=== PATIENT | female | born 1995 | race Caucasian/White ===

== ENCOUNTER → 2017-06-04 | Outpatient (CLI) | payer OTHER | LOC: M.RAD 10:10 | DX: M54.6 Pain in thoracic spine (principal); R51 Headache; M54.5 Low back pain; M54.2 Cervicalgia; M54.9 Dorsalgia, unspecified ==

== ENCOUNTER 2020-07-16 12:17 | Emergency (ER) | payer OTHER ==
[~2020-07-16] VITALS: Ht 170.2 cm; Wt 90.7 kg
[2020-07-16] MEDS ORDERED: DEPO-PROVE150 MG/11 IM (12:46)
[2020-07-16 13:00] LABS: HEMATOCRIT 44.8 % (37.0-47.0); HEMOGLOBIN 14.7 gm/dL (12.0-15.0); MCH 27.6 pg (26.0-34.0); MCHC 32.7 g/dL (28.0-37.0); MCV 84.3 fL (80.0-100.0); MPV 9.1 fl. (7.2-11.1); NUCLEATED RBCS 0 /100WBC; PLATELET COUNT* 233 thou/uL (150-400); RBC 5.31 mil/uL (4.20-5.00); RDW-CV 14.1 % (10.5-14.5); WBC 15.9 thou/uL (4.0-11.0)
[2020-07-16 13:10] LABS: CALCIUM 9.5 mg/dL (8.5-10.1); CREATININE 0.9 mg/dL (0.6-1.3)
[2020-07-16 13:15] LABS: ALBUMIN 4.5 g/dL (3.4-5.0); TOTAL BILIRUBIN 0.8 mg/dL (<0.1-1.0); TOTAL PROTEIN 8.1 g/dL (6.4-8.2)
[2020-07-16 13:35] LABS: ABSOLUTE EOSINOPHILS 0.5 thou/uL (0.0-0.7); ABSOLUTE MONOCYTES 0.2 thou/uL (0.0-1.2); ABSOLUTE NEUTROPHILS 14.3 thou/uL (1.6-8.1); PLATELET ESTIMATE ADEQUATE
[2020-07-16 13:43] LABS: URINE BILIRUBIN NEGATIVE (Negative); URINE BLOOD NEGATIVE (Negative); URINE CLARITY CLEAR; URINE COLOR YELLOW; URINE GLUCOSE-RANDOM NEGATIVE (Negative); URINE KETONES NEGATIVE (Negative); URINE LEUKOCYTES-REFLEX NEGATIVE (Negative); URINE NITRITE-REFLEX NEGATIVE (Negative); URINE PROTEIN NEGATIVE (Negative); URINE UROBILINOGEN 0.2 E.U./dl (0.2-1.0)
[2020-07-16] MEDS ORDERED: IBUPROFEN 800800 M1 PO (15:36)
[2020-07-16] MEDS ORDERED: AUGMENTIN 875-1 EACH PO (15:36)
[2020-07-16] MEDS ORDERED: ZOFRAN ODT4 MG PO (15:36)
[2020-07-16] MEDS ORDERED: NORCO5 PO (15:36)
[2020-07-16 15:49] VITALS: BP 101/60
== END 2020-07-16 15:50 | disposition home or self-care (01) ==
LOC: M.ERS 12:17
PROVIDERS: Nurse Practitioner Family
DX: K52.9 Noninfective gastroenteritis and colitis, unspecified (principal); Z20.822 Contact with and (suspected) exposure to COVID-19; Z88.5 Allergy status to narcotic agent; Z90.49 Acquired absence of other specified parts of digestive tract

== ENCOUNTER 2021-02-06 11:55 | Emergency (ER) | payer OTHER ==
[~2021-02-06] VITALS: Ht 170.2 cm; Wt 89.8 kg
[~2021-02-06 11:55] MED LIST: AUGMENTIN 875-1 EACH PO; DEPO-PROVE150 MG/11 IM; IBUPROFEN 800800 M1 PO; NORCO5 PO; ZOFRAN ODT4 MG PO
[2021-02-06 12:04] VITALS: BP 123/75
[2021-02-06] MEDS ORDERED: IBUPROFEN 800800 M1 PO (13:11)
== END 2021-02-06 13:19 | disposition home or self-care (01) ==
LOC: M.ERS 11:55
DX: S63.91XA Sprain of unspecified part of right wrist and hand, initial encounter (principal); Z98.890 Other specified postprocedural states; Z88.5 Allergy status to narcotic agent; X58.XXXA Exposure to other specified factors, initial encounter; Y93.89 Activity, other specified; Y92.89 Other specified places as the place of occurrence of the external cause; Y99.8 Other external cause status